=== PATIENT | female | born 1990 | race Caucasian/White ===

== ENCOUNTER 2022-11-20 21:09 | Emergency (ER) | payer MEDICAID ==
[~2022-11-20] VITALS: Ht 154 cm; Wt 59.0 kg
[2022-11-20] MEDS ORDERED: ASPIRIN 81 MG CHEW (CHILDREN'S ASA) ONE (21:27)
[2022-11-20] MEDS ORDERED: NITROGLYCERIN 2% OINT 1 GM UNIT DOSE PACKET TOP ONE (21:30)
[2022-11-20] MEDS ORDERED: ASPIRIN 81 MG CHEW (CHILDREN'S ASA) PO ONE (21:30)
[2022-11-20 21:32] LABS: BASOPHILS # (AUTO) 0.2 10^3/uL (0.0-0.1); BASOPHILS % (AUTO) 1 % (0-10); EOSINOPHILS % (AUTO) 0 % (0-10); HEMATOCRIT 46 % (35-52); HEMOGLOBIN 15.7 g/dL (11.5-16.0); LYMPHOCYTES # (AUTO) 1.8 10^3/uL (1.0-4.0); LYMPHOCYTES % (AUTO) 10 % (12-44); MEAN CORPUSCULAR HEMOGLOBIN 32 pg (25-34); MEAN CORPUSCULAR HGB CONC 34 g/dL (32-36); MEAN CORPUSCULAR VOLUME 92 fL (80-99); MEAN PLATELET VOLUME 9.3 fL (9.0-12.2); MONOCYTES # (AUTO) 0.5 10^3/uL (0.0-1.0); MONOCYTES % (AUTO) 3 % (0-12); NEUTROPHILS % (AUTO) 85 % (42-75); PLATELET COUNT 279 10^3/uL (130-400); WHITE BLOOD COUNT 17.6 10^3/uL (4.3-11.0)
[2022-11-20 21:44] LABS: CHLORIDE 104 MMOL/L (98-107); POTASSIUM 3.5 MMOL/L (3.6-5.0); SODIUM 140 MMOL/L (135-145)
[2022-11-20 21:46] LABS: AMYLASE 51 U/L (25-125); PROTHROMBIN TIME PATIENT 13.6 SEC (12.2-14.7)
[2022-11-20 21:47] LABS: GLUCOSE 125 MG/DL (70-105); TOTAL PROTEIN 8.1 GM/DL (6.4-8.2)
[2022-11-20 21:48] LABS: CARBON DIOXIDE 20 MMOL/L (21-32)
[2022-11-20 21:49] LABS: BILIRUBIN,TOTAL 0.5 MG/DL (0.1-1.0)
[2022-11-20 21:50] LABS: ALKALINE PHOSPHATASE 90 U/L (40-136)
[2022-11-20 21:51] LABS: CREATININE SERUM 1.05 MG/DL (0.60-1.30); GFR ESTIMATED 72
[2022-11-20 21:52] LABS: BUN/CREATININE RATIO 9; EOSINOPHILS % (MANUAL) 2 %; LYMPHOCYTES % (MANUAL) 12 %; MONOCYTES % (MANUAL) 3 %; NEUTROPHILS % (MANUAL) 83 %
[2022-11-20 21:53] LABS: ALANINE AMINOTRANSFERASE 10 U/L (0-55)
[2022-11-20 21:54] LABS: CREATINE KINASE 65 U/L (29-168); LIPASE 16 U/L (8-78)
[2022-11-20 22:01] LABS: CREATINE KINASE MB 0.5 NG/ML (<6.6)
[2022-11-20] MEDS ORDERED: ONDANSETRON 4 MG/2 ML (SDV) Z0FRAN IVP ONE (22:15)
--- NOTE | 2022-11-20 22:24 | ED Chest Pain ---
General Chief Complaint: Chest Pain Stated Complaint: RIGHT ARM PAIN/CHEST PAIN/BACK PAIN Nursing Triage Note: PT TO OR 8 PER AMB W/ C/O RT ARM PAIN ET NUMBNESS TO FINGERS, RT SIDED CHEST PAIN RADIATING THROUGH TO LT BACK ET NECK. REPORTS ONSET OF NAUSEA @1300 TODAY W/ CP ONSET 1500. REPORTS DIAPHORESIS, VOMITING X1. STATES PAIN WORSE UPON BREATHING. NO OTHER C/O VOICED. Source: patient History of Present Illness Date Seen by Provider: Nov 20, 2022 Time Seen by Provider: 21:16 Initial Comments PT ARRIVES VIA POV FROM HOME PT STATES SINCE 1300 TODAY, WHILE WALKING AROUND IN HOUSE, SHE HAS BEEN HAVING: -RIGHT MID AND UPPER CHEST PAIN -PAIN IN LEFT UPPER BACK -PAIN IN POSTERIOR NECK -RIGHT ARM PAIN WITH NUMBNESS/TINGLING IN RIGHT FINGERS -NAUSEA, VOMITED X 1. NO DIARRHEA. NO ABDOMINAL PAIN -+ SWEATS NO PALPITATIONS--STATES SHE CAN FEEL HER HEART BEAT BUT IT IS NOT FAST OR IRREGULAR NO DIZZINESS OR SYNCOPE NO SWELLING IN LEGS/FEET OR PAIN IN CALVES NO FEVER OR RECENT ILLNESS RATES PAIN 7/10 CESAR IS WORSE WITH DEEP BREATHS BUT DOES NOT FEEL SHORT OF BREATH HAS HISTORY OF SIMILAR--HAS HISTORY OF PALPITATIONS--TREATED WITH [facility], BUT HAS BEEN OFF IT FOR 2 YEARS DENIES FEELING THE PALPITATIONS TODAY SHE HAS NOT TAKEN ANYTHING FOR PAIN TODAY PT WAS DX WITH LUPUS LAST FALL, AND STARTED ON HYDROXYCHLOROQUINE 06/2022. NO DOSE CHANGES. DENIES ANY OTHER MEDICAL PROBLEMS SHE SMOKES 1/2 PPD, DENIES DRUG OR ALCOHOL USE. LMP--UNKNOWN, NO CONTROL PCP: [facility] Allergies and Home Medications Allergies Coded Allergies: Penicillins (Verified Allergy, Unknown, 11/20/22) Sulfa (Sulfonamide Antibiotics) (Verified Allergy, Unknown, 11/20/22) erythromycin base (Verified Allergy, Unknown, 11/20/22) Patient Home Medication List Home Medication List Reviewed: Yes Review of Systems Review of Systems Constitutional: see HPI, diaphoresis; No fever EENTM: No Symptoms Reported Respiratory: See HPI Cardiovascular: See HPI Gastrointestinal: See HPI Genitourinary: No Symptoms Reported Musculoskeletal: see HPI Skin: no symptoms reported Psychiatric/Neurological: Anxiety Endocrine: No Symptoms Reported Hematologic/Lymphatic: No Symptoms Reported Past Lafkuvr-Szjolf-Ovgtbe Hx Patient Social History Tobacco Use?: Yes Tobacco type used: Cigarettes Smoking Status: Current Everyday Smoker Use of E-Cig and/or Vaping dev: No Substance use?: No Alcohol Use?: No Pt feels they are or have been: No Past Medical History Surgery/Hospitalization HX: LUPUS ANXIETY APPY WILMER T&A Surgeries: Yes Appendectomy, Tonsillectomy Respiratory: No Cardiac: Yes Palpitations Neurological: No Reproductive Disorders: No Genitourinary: No Gastrointestinal: No Musculoskeletal: No Endocrine: Yes Lupus HEENT: No Cancer: No Psychosocial: Yes Anxiety Integumentary: No Blood Disorders: No Physical Exam Vital Signs Vital Signs - First Documented 11/20/22 11/20/22 21:16 21:20 Temp 36.9 Pulse 125 Resp 20 B/P (MAP) 126/79 (95) Pulse Ox 99 O2 Delivery Room Air O2 Flow Rate 2.00 Capillary Refill : Less Than 3 Seconds Height, Weight, BMI Height: '" Weight: lbs. oz. kg; 24.00 BMI Method: General Appearance: No Apparent Distress, WD/WN, Other (STRONG ODOR OF CIGARETTES) Neck: Full Range of Motion, Normal Inspection, Non Tender, Supple Respiratory: Normal Breath Sounds, No Accessory Muscle Use, No Respiratory Distress, Other (MILD MID / UPPER STERNAL TENDERNESS) Cardiovascular: No Edema, No JVD, No Murmur, Normal Peripheral Pulses, Tachycardia (110'S) Gastrointestinal: Normal Bowel Sounds, No Organomegaly, No Pulsatile Mass, Non Tender, Soft Extremity: Normal Capillary Refill, Normal Inspection, Normal Range of Motion, Non Tender, No Calf Tenderness, No Pedal Edema Neurologic/Psychiatric: Alert, Oriented x3, No Motor/Sensory Deficits, Normal Mood/Affect, eyeglass fitter II-XII Norm as Tested Skin: Normal Color, Warm/Dry; No Rash; Tattoos/Piercings Progress/Results/Core Measures Results/Orders Lab Results Laboratory Tests Test 11/20/22 21:25 11/21/22 00:27 11/21/22 00:37 Range/Units White Blood Count 17.6 H 4.3-11.0 10^3/uL Red Blood Count 4.97 3.80-5.11 10^6/uL Hemoglobin 15.7 11.5-16.0 g/dL Hematocrit 46 35-52 % Mean Corpuscular Volume 92 80-99 fL Mean Corpuscular Hemoglobin 32 25-34 pg Mean Corpuscular Hemoglobin Concent 34 32-36 g/dL Red Cell Distribution Width 11.9 10.0-14.5 % Platelet Count 279 130-400 10^3/uL Mean Platelet Volume 9.3 9.0-12.2 fL Immature Granulocyte % (Auto) 0 % Neutrophils (%) (Auto) 85 H 42-75 % Lymphocytes (%) (Auto) 10 L 12-44 % Monocytes (%) (Auto) 3 0-12 % Eosinophils (%) (Auto) 0 0-10 % Basophils (%) (Auto) 1 0-10 % Neutrophils # (Auto) 15.0 H 1.8-7.8 10^3/uL Lymphocytes # (Auto) 1.8 1.0-4.0 10^3/uL Monocytes # (Auto) 0.5 0.0-1.0 10^3/uL Eosinophils # (Auto) 0.0 0.0-0.3 10^3/uL Basophils # (Auto) 0.2 H 0.0-0.1 10^3/uL Immature Granulocyte # (Auto) 0.1 0.0-0.1 10^3/uL Neutrophils % (Manual) 83 % Lymphocytes % (Manual) 12 % Monocytes % (Manual) 3 % Eosinophils % (Manual) 2 % Prothrombin Time 13.6 12.2-14.7 SEC INR Comment 1.0 0.8-1.4 Activated Partial Thromboplast Time 34 24-35 SEC D-Dimer 0.11 0.00-0.49 UG/ML Sodium Level 140 135-145 MMOL/L Potassium Level 3.5 L 3.6-5.0 MMOL/L Chloride Level 104 98-107 MMOL/L Carbon Dioxide Level 20 L 21-32 MMOL/L Anion Gap 16 H 5-14 MMOL/L Blood Urea Nitrogen 9 7-18 MG/DL Creatinine 1.05 0.60-1.30 MG/DL Estimat Glomerular Filtration Rate 72 BUN/Creatinine Ratio 9 Glucose Level 125 H 70-105 MG/DL Calcium Level 10.0 8.5-10.1 MG/DL Corrected Calcium 8.5-10.1 MG/DL Magnesium Level 2.0 1.6-2.4 MG/DL Total Bilirubin 0.5 0.1-1.0 MG/DL Aspartate Amino Transf (AST/SGOT) 15 5-34 U/L Alanine Aminotransferase (ALT/SGPT) 10 0-55 U/L Alkaline Phosphatase 90 40-136 U/L Total Creatine Kinase 65 29-168 U/L Creatine Kinase MB 0.5 <6.6 NG/ML Myoglobin 26.5 10.0-92.0 NG/ML Troponin I < 0.028 < 0.028 <0.028 NG/ML B-Type Natriuretic Peptide 14.9 <100.0 PG/ML Total Protein 8.1 6.4-8.2 GM/DL Albumin 5.0 H 3.2-4.5 GM/DL Amylase Level 51 25-125 U/L Lipase 16 8-78 U/L Serum Test, Qualitative NEGATIVE NEGATIVE Urine Color YELLOW Urine Clarity CLEAR Urine pH 8.0 5-9 Urine Specific [place] <=1.005 1.016-1.022 Urine Protein NEGATIVE NEGATIVE Urine Glucose (UA) NEGATIVE NEGATIVE Urine Ketones NEGATIVE NEGATIVE Urine Nitrite NEGATIVE NEGATIVE Urine Bilirubin NEGATIVE NEGATIVE Urine Urobilinogen 0.2 < = 1.0 MG/DL Urine Leukocyte Esterase NEGATIVE NEGATIVE Urine RBC (Auto) NEGATIVE NEGATIVE Urine RBC NONE /HPF Urine WBC NONE /HPF Urine Squamous Epithelial Cells 0-2 /HPF Urine Crystals NONE /LPF Urine Bacteria TRACE /HPF Urine Casts NONE /LPF Urine Mucus NEGATIVE /LPF Urine Culture Indicated NO My Orders Orders - DIANA CLOUD DO Cbc With Automated Diff (11/20/22 21:17) Magnesium (11/20/22 21:17) Chest 1 View, Ap/Pa Only (11/20/22 21:17) Ekg Tracing (11/20/22 21:17) Comprehensive Metabolic Panel (11/20/22 21:17) Myoglobin Serum (11/20/22 21:17) Protime With Inr (11/20/22 21:17) Partial Thromboplastin Time (11/20/22 21:17) O2 (11/20/22 21:17) Monitor-Rhythm Ecg Trace Only (11/20/22 21:17) Ed Iv/Invasive Line Start (11/20/22 21:17) Creatine Kinase (11/20/22 21:17) Creatine Kinase Mb (11/20/22 21:17) Lipase (11/20/22 21:17) Amylase (11/20/22 21:17) Bnp [place] (11/20/22 21:17) Fibrin Degradation Products (11/20/22 21:17) Troponin I Minor (11/20/22 21:17) Hcg,Qualitative Serum (11/20/22 21:17) Aspirin Chewable Tablet (Baby Aspirin Ch (11/20/22 21:30) Nitroglycerin Ointment (Nitrobid Ointme (11/20/22 21:30) Aspirin Chewable Tablet (Baby Aspirin Ch (11/20/22 21:27) Manual Differential (11/20/22 21:25) Ct Angio Chest W (R/O Pe) (11/20/22 22:05) Ondansetron Injection (Zofran Injectio (11/20/22 22:15) Iohexol Injection (Omnipaque 350 Mg/Ml 1 (11/20/22 22:45) Sodium Chloride Flush (Catheter Flush Sy (11/20/22 22:45) Ns (Ivpb) (Sodium Chloride 0.9% Ivpb Bag (11/20/22 22:45) Pantoprazole Injection (Protonix Injecti (11/20/22 23:30) Ketorolac Injection (Toradol Injection) (11/20/22 23:30) Ed Iv/Invasive Line Start (11/20/22 23:27) Lactated Ringers (Lr 1000 Ml Iv Solution (11/20/22 23:30) Ekg Tracing (11/21/22 00:14) Troponin I Minor (11/21/22 00:14) Ua Culture If Indicated (11/21/22 00:14) Medications Given in ED Current Medications Medications Dose Ordered Sig/Lisa Route Start Time Stop Time Status Last Admin Dose Admin Aspirin 324 mg ONCE ONCE PO 11/20/22 21:30 11/20/22 21:31 DC 11/20/22 21:30 324 MG Iohexol 100 ml ONCE ONCE IV 11/20/22 22:45 11/20/22 22:46 DC 11/20/22 22:38 80 ML Ketorolac Tromethamine 30 mg ONCE ONCE IVP 11/20/22 23:30 11/20/22 23:31 DC 11/20/22 23:59 30 MG Lactated Ringer's 1,000 ml @ 0 mls/hr Q0M ONCE IV 11/20/22 23:30 11/20/22 23:31 DC 11/20/22 23:51 0 MLS/HR Nitroglycerin 0.5 inch ONCE ONCE TOP 11/20/22 21:30 11/20/22 21:31 DC 11/20/22 21:33 0.5 INCH Ondansetron HCl 4 mg ONCE ONCE IVP 11/20/22 22:15 11/20/22 22:16 DC 11/20/22 22:25 4 MG Pantoprazole 40 mg ONCE ONCE IV 11/20/22 23:30 11/20/22 23:31 DC 11/20/22 23:51 40 MG Sodium Chloride 10 ml NEEDED PRN IV 11/20/22 22:45 11/20/22 22:38 10 ML Sodium Chloride 100 ml ONCE ONCE IV 11/20/22 22:45 11/20/22 22:46 DC 11/20/22 22:38 80 ML Vital Signs/I&O 11/20/22 11/20/22 21:16 21:20 Temp 36.9 Pulse 125 Resp 20 B/P (MAP) 126/79 (95) Pulse Ox 99 99 O2 Delivery Room Air Nasal Cannula O2 Flow Rate 2.00 Blood Pressure Mean: 95 Progress Progress Note : Progress Note GIVEN: -ASPIRIN -ZOFRAN -NITROPASTE -PROTONIX -IV FLUIDS -TORADOL UNEVENTFUL ER STAY NO FEVER NO DYSPNEA OR COUGH NO HYPOXIA NO HYPOTENSION NO VOMITING HR DOWN WITH IV FLUIDS CHEST PAIN AND NAUSEA RESOLVED UNEVENTFUL ER STAY. PT WITH ELEVATED WBC, WITHOUT SOURCE OF INFECTION OR ANY OTHER SYMPTOMS OF INFECTION, AND IS AFEBRILE. UA IS CLEAR CXR AND CT ANGIOGRAM OF CHEST ARE BOTH NORMAL 3 HOUR REPEAT TROPONIN AND EKG ARE BOTH NEGATIVE/UNCHANGED PT IS SYMPTOM-FREE AT DISMISSAL WITH NORMAL VITALS DISCUSSED TEST RESULTS, ANTICIPATED COURSE, SYMPTOMATIC TREATMENT, MEDICATIONS, NEED FOR FOLLOW UP AND RETURN PRECAUTIONS NO PRIOR VISITS HERE. Initial ECG Impression Date: Nov 20, 2022 Initial ECG Impression Time: 21:20 Initial ECG Rate: 117 Initial ECG Rhythm: S.Tach (PVC) Initial ECG Intervals: Normal Initial ECG Comparisson: No Previous ECG Available Comment INTERPRETED BY ME EKG : EKG Time: 00:32 Rate: 85 Rhythm: Normal Sinus Intervals: Normal ECG Comparisson: Unchanged ECG Impression: Normal Comment INTERPRETED BY ME Diagnostic Imaging Comments CXR--PER RADIOLOGIST REPORT AT 8464 FINDINGS: Single frontal view of the chest demonstrates normal heart size and pulmonary vascularity. The lungs are well aerated and clear. No large pleural effusion or pneumothorax is seen. The visualized osseous structures show no acute abnormality. IMPRESSION: No acute cardiopulmonary process. CT CHEST ANGIOGRAM--PER [facility] VIA FAX AT 2694 -NORMAL CHEST CTA. -NO P.E. -NO PULMONARY PARENCHYMAL ABNORMALITY Reviewed: Reviewed by Me Departure Impression Primary Impression: Chest pain Additional Impression: Lupus Disposition: HOME, SELF-CARE Condition: Improved Departure-Patient Inst. Decision time for Depature: 01:09 Referrals: [facility] [place] Patient Instructions: Chest Pain, Adult ED Add. Discharge Instructions: HOME, REST CONTINUE YOUR CURRENT MEDICATION PRESCRIBED TYLENOL AND MOTRIN NEEDED FOR PAIN FOLLOW UP WITH [facility] IN 1-2 DAYS, RETURN TO ER IF SYMPTOMS RETURN. All discharge instructions reviewed with patient and/or family. Voiced understanding. Scripts Pantoprazole Sodium (Protonix) 40 Mg Tablet. 40 MG PO DAILY, #15 TAB Prov: DIANA CLOUD DO 11/21/22 DIANA CLOUD DO Nov 20, 2022 22:24
--- NOTE | 2022-11-20 22:29 | Diagnostic Imaging Report ---
INDICATION: Chest pain. COMPARISON: None. FINDINGS: Single frontal view of the chest demonstrates normal heart size and pulmonary vascularity. The lungs are well aerated and clear. No large pleural effusion or pneumothorax is seen. The visualized osseous structures show no acute abnormality. IMPRESSION: No acute cardiopulmonary process. Dictated by: Dictated on workstation # [id number]
[2022-11-20] MEDS ORDERED: IOHEXOL 350 MG/ML 100 ML (OMNIPAQUE 350) VIAL IV ONE (22:45)
[2022-11-20] MEDS ORDERED: CATHETER FLUSH 10 ML SYR IV PRN (22:45)
[2022-11-20] MEDS ORDERED: NS 100 ML (IVPB) BAG IV ONE (22:45)
[2022-11-20] MEDS ORDERED: LACTATED RINGERS 1,000 ML IV ONE (23:30)
[2022-11-20] MEDS ORDERED: PANTOPRAZOLE 40 MG (PROTONIX) VIAL IV ONE (23:30)
[2022-11-20] MEDS ORDERED: KETOROLAC 30 MG/ML VIAL IVP ONE (23:30)
[2022-11-21 00:43] LABS: BILIRUBIN,URINE NEGATIVE (NEGATIVE); CLARITY,URINE CLEAR; COLOR,URINE YELLOW; GLUCOSE, URINE (UA) NEGATIVE (NEGATIVE); KETONES,URINE NEGATIVE (NEGATIVE); LEUKOCYTE ESTERASE ,URINE NEGATIVE (NEGATIVE); NITRITE,URINE NEGATIVE (NEGATIVE); PROTEIN,URINE NEGATIVE (NEGATIVE)
[2022-11-21 00:51] LABS: BACTERIA,URINE TRACE /HPF; SQUAMOUS EPITHELIAL CELL,UR 0-2 /HPF
[2022-11-21] MEDS ORDERED: PANT40TA2 PO (01:12)
[2022-11-21 01:22] VITALS: BP 103/68
--- NOTE | 2022-11-21 08:37 | Diagnostic Imaging Report ---
Indication: Chest pain and dyspnea in patient with lupus erythematosus. CTA of the thorax performed after bolus intravenous administration of iodinated contrast. Three-D reformatted images are produced. There is good opacification pulmonary arteries without intraluminal filling defect. Lungs are clear and well expanded. Thoracic aorta is of normal caliber without dissection. There is no significant pleural or pericardial fluid. No pathologically enlarged adenopathy is seen. IMPRESSION: No CTA evidence of pulmonary embolism or other great vessel abnormality in the thorax. Dictated by: Dictated on workstation # [id number]
== END 2022-11-21 01:24 | disposition home or self-care (01) ==
LOC: ER 21:21
DX: R07.89 Other chest pain (principal); M32.9 Systemic lupus erythematosus, unspecified; F17.210 Nicotine dependence, cigarettes, uncomplicated; Z79.620 Long term (current) use of immunosuppressive biologic
CPT/HCPCS: 36415; 71045; 71275; 80053; 81000; 82150; 82550; 82553; 83690; 83735; 83874; 83880; 84484; 84703; 85007; 85027; 85379; 85610; 85730; 93005; 93041